=== PATIENT | male | born 1990 | race Caucasian/White ===

== ENCOUNTER 2020-11-25 09:05 | Inpatient (IN) | payer OTHER ==
[~2020-11-25] VITALS: Ht 175.3 cm; Wt 77.1 kg
[2020-11-25] MEDS ORDERED: IV NS 0.9% 1,000 ML BAG IV ONE ×2 (09:30→11:00)
[2020-11-25 09:52] LABS: BASOPHILS % (AUTO) 0.1 % (0.0-2.0); HEMATOCRIT 52 % (39-51); HEMOGLOBIN 17.5 g/dL (13.5-17.5); LYMPHOCYTES # (AUTO) 0.9 /CMM (0.8-4.8); LYMPHOCYTES % (AUTO) 5.5 % (20.0-44.0); MEAN CORPUSCULAR HGB CONC 33 g/dl (31.0-36.0); MEAN CORPUSCULAR VOLUME 94 fL (80-96); MONOCYTES # (AUTO) 1.6 /CMM (0.1-1.30); MONOCYTES % (AUTO) 10.2 % (2.0-12.0); NEUTROPHILS # (AUTO) 13.3 /CMM (1.8-8.9); NEUTROPHILS % (AUTO) 84.2 % (43.0-81.0); PLATELET COUNT (AUTO) 267 /CMM (150-450); RED BLOOD CELL COUNT(AUTO) 5.56 MIL/uL (4.5-6.0); WHITE BLOOD COUNT (AUTO) 15.7 K/uL (4.3-11.0)
[2020-11-25 10:17] LABS: CALCIUM, SERUM 9.5 mg/dL (8.5-10.1); CARBON DIOXIDE 31 mmol/L (21-32); CHLORIDE 101 mmol/L (98-107); GLUCOSE 120 mg/dL (74-106); POTASSIUM 5.1 mmol/L (3.5-5.1); SODIUM SERUM 140 mmol/L (136-145); UREA NITROGEN, BLOOD 23 mg/dL (7-18)
[2020-11-25 10:25] LABS: ALANINE AMINOTRANSFERASE 491 U/L (12-78); ALCOHOL, BLOOD < 3 mg/dL (0-0); ALKALINE PHOSPHATASE 90 U/L (46-116); ASPARTATE AMINOTRANSFERASE 1544 U/L (15-37); BILIRUBIN,DIRECT 0.1 mg/dL (0.0-0.2); BILIRUBIN,TOTAL 0.4 mg/dL (0.2-1.0); TOTAL PROTEIN, SERUM 7.9 g/dL (6.4-8.2)
[2020-11-25 10:29] LABS: THYROID STIMULATING HORMONE 1.202 uIU/mL (0.358-3.74)
[2020-11-25] MEDS ORDERED: IV NS 0.9% 250 ML IV ONE (10:34)
[2020-11-25] MEDS ORDERED: CT SWABBABLE VALVE TRANS SET 1 EA INFUS.SET MC ONE (10:34)
[2020-11-25] MEDS ORDERED: IOHEXOL-300 100 ML VIAL IV ONE (10:34)
[2020-11-25] MEDS ORDERED: ONDANSETRON HCL/PF 4 MG/2 ML VIAL ONE (10:54)
[2020-11-25] MEDS ORDERED: ONDANSETRON HCL/PF - ER 4 MG/2 ML VIAL IV ONE (11:00)
[2020-11-25 11:20] LABS: BILIRUBIN,URINE MODERATE (NEGATIVE); COLOR,URINE AMBER (YELLOW); LEUKOCYTE ESTERASE ,URINE NEGATIVE (NEGATIVE); NITRITE, URINE POSITIVE (NEGATIVE); PH,URINE 6.5 (5.0-8.0); PROTEIN,URINE 100 mg/dl (NEGATIVE); UGLUCOSE NEGATIVE (NEGATIVE); UROBILINOGEN,URINE 0.2 EU/dL (0.2)
[2020-11-25 11:30] LABS: BACTERIA,URINE Few /HPF (None Seen); SQUAMOUS EPITHELIAL CELL,UR Rare /HPF (None Seen)
[2020-11-25 11:31] LABS: HYALINE CASTS, URINE Few /LPF (None Seen); URINE AMORPHOUS URATE Few /HPF (None Seen)
[2020-11-25 11:32] LABS: COARSE GRANULAR CASTS,URINE Few /LPF (None Seen)
[2020-11-25] MEDS ORDERED: LORAZEPAM INJ 2 MG/ML VIAL ONE (16:27)
[2020-11-25] MEDS ORDERED: LORAZEPAM INJ 2 MG/ML VIAL IV ONE (17:00)
[2020-11-25] MEDS ORDERED: HYDROCODONE/APAP 5/325MG TABLET PO PRN (17:30)
[2020-11-25] MEDS ORDERED: MAG HYDROX/AL HYDROX/SIMETH 30 ML UDC PO PRN (17:30)
[2020-11-25] MEDS ORDERED: ONDANSETRON HCL/PF 4 MG/2 ML VIAL IVP PRN (17:30)
[2020-11-25] MEDS ORDERED: Z GUARD REMEDY 2 OZ OINT TP PRN (17:30)
[2020-11-25] MEDS ORDERED: ACETAMINOPHEN 325 MG TABLET PO PRN (17:30)
[2020-11-25] MEDS ORDERED: MAGNESIUM HYDROXIDE 30 ML UDC PO PRN (17:30)
[2020-11-25] MEDS ORDERED: GADOTERATE MEGLUMINE 10 MMOL/20 ML VIAL IV ONE (18:57)
[2020-11-25 20:00] VITALS: BP 116/70
[2020-11-25] MEDS ORDERED: ENOXAPARIN SODIUM 40 MG/0.4 ML DISP.SYRIN SQ SCH (21:00)
[2020-11-25] MEDS ORDERED: ZOLPIDEM TARTRATE 5 MG TABLET PO PRN (22:00)
[2020-11-26 06:54] LABS: BASOPHILS % (AUTO) 0.2 % (0.0-2.0); EOSINOPHILS % (AUTO) 0.2 % (0.0-6.0); HEMATOCRIT 48 % (39-51); HEMOGLOBIN 16.1 g/dL (13.5-17.5); LYMPHOCYTES # (AUTO) 1.4 /CMM (0.8-4.8); LYMPHOCYTES % (AUTO) 11.7 % (20.0-44.0); MEAN CORPUSCULAR HGB CONC 34 g/dl (31.0-36.0); MEAN CORPUSCULAR VOLUME 93 fL (80-96); MONOCYTES # (AUTO) 1.4 /CMM (0.1-1.30); MONOCYTES % (AUTO) 12.1 % (2.0-12.0); NEUTROPHILS # (AUTO) 8.8 /CMM (1.8-8.9); NEUTROPHILS % (AUTO) 75.8 % (43.0-81.0); PLATELET COUNT (AUTO) 241 /CMM (150-450); RED BLOOD CELL COUNT(AUTO) 5.14 MIL/uL (4.5-6.0); WHITE BLOOD COUNT (AUTO) 11.5 K/uL (4.3-11.0)
[2020-11-26 07:13] LABS: CALCIUM, SERUM 8.9 mg/dL (8.5-10.1); CREATININE 0.8 mg/dL (0.6-1.3); MAGNESIUM 2.7 mg/dL (1.8-2.4); PHOSPHORUS 2.8 mg/dL (2.5-4.9); POTASSIUM 4.2 mmol/L (3.5-5.1)
[2020-11-26 07:23] LABS: THYROID STIMULATING HORMONE 0.414 uIU/mL (0.358-3.74)
[2020-11-26 08:00] VITALS: BP 127/65
[2020-11-26 16:00] VITALS: BP 125/69
[2020-11-26 18:40] LABS: CSF GLUCOSE 72 mg/dL (40-70)
[2020-11-26 20:00] VITALS: BP 121/66
[2020-11-27 16:00] LABS: CSF PROTEIN 16.5 mg/dL (15-45)
== END 2020-11-26 21:05 | disposition short-term general hospital (02) | DRG 95 ==
LOC: ER 09:08 → TRANSITION 14:00 → MEDSG2 17:20
PROC: 009U3ZX Drainage of Spinal Canal, Percutaneous Approach, Diagnostic (ICD-10-PCS; principal; 2020-11-26)
PROC: B01BYZZ Fluoroscopy of Spinal Cord using Other Contrast (ICD-10-PCS; 2020-11-26)
DX: G61.0 Guillain-Barre syndrome (principal); E87.2 Acidosis; Z20.822 Contact with and (suspected) exposure to COVID-19; Z59.0 Homelessness; D72.829 Elevated white blood cell count, unspecified; Z72.0 Tobacco use; F19.10 Other psychoactive substance abuse, uncomplicated
CPT/HCPCS: 36415; 62270; 70450-TC; 71045-TC; 72132-TC; 72157-TC; 72158-TC; 80048-TC; 80061-TC; 80074; 80076-TC; 81001; 82962-TC; 83735-TC; 84100-TC; 84443-TC; 85025-TC; 85610-TC; 85730-TC; 86592; 87081-TC; 87086-TC; 87899; 89051-TC; A9575; G0378; G0480; J1650; J2060; J2405; J7030; J7050; Q9967; U0003

== ENCOUNTER 2021-02-12 17:41 | Emergency (ER) | payer OTHER ==
[~2021-02-12] VITALS: Ht 175.3 cm; Wt 78.0 kg
--- NOTE | 2021-02-12 18:04 | NUR ---
BIB RA 881,C/O LOWER BACK ABSCESS AND CHILLS. RATES PAIN 8/10. IN ROOM AIR AND DENIES SOB. RESPIRATION REGULAR AND UNLABORED. ATTACHED ON A MONITOR. WILL CONTINUE TO MONITOR THE PATIENT.
[2021-02-12] MEDS ORDERED: CLINDAMYCIN 900 MG in IV D5W 50 ML IV ONE (18:30)
[2021-02-12] MEDS ORDERED: CLINDAMYCIN 900 MG/6 ML VIAL ONE (18:33)
[2021-02-12 18:49] LABS: BASOPHILS % (AUTO) 0.2 % (0.0-2.0); EOSINOPHILS % (AUTO) 0.7 % (0.0-6.0); HEMATOCRIT 32 % (39-51); LYMPHOCYTES # (AUTO) 1.6 /CMM (0.8-4.8); LYMPHOCYTES % (AUTO) 8.3 % (20.0-44.0); MEAN CORPUSCULAR HGB CONC 32 g/dl (31.0-36.0); MEAN CORPUSCULAR VOLUME 88 fL (80-96); MONOCYTES # (AUTO) 1.3 /CMM (0.1-1.30); MONOCYTES % (AUTO) 6.8 % (2.0-12.0); NEUTROPHILS # (AUTO) 16.4 /CMM (1.8-8.9); PLATELET COUNT (AUTO) 549 /CMM (150-450); RED BLOOD CELL COUNT(AUTO) 3.59 MIL/uL (4.5-6.0); WHITE BLOOD COUNT (AUTO) 19.5 K/uL (4.3-11.0)
[2021-02-12 18:55] LABS: CALCIUM, SERUM 8.9 mg/dL (8.5-10.1); CREATININE 0.8 mg/dL (0.6-1.3); POTASSIUM 4.4 mmol/L (3.5-5.1)
[2021-02-12 19:01] LABS: ALBUMIN 1.9 g/dL (3.4-5.0); BILIRUBIN,DIRECT 0.1 mg/dL (0.0-0.2); BILIRUBIN,TOTAL 0.3 mg/dL (0.2-1.0); TOTAL PROTEIN, SERUM 7.2 g/dL (6.4-8.2)
[2021-02-12] MEDS ORDERED: CT SWABBABLE VALVE TRANS SET 1 EA INFUS.SET MC ONE (19:02)
[2021-02-12] MEDS ORDERED: IOHEXOL-300 100 ML VIAL IV ONE (19:02)
[2021-02-12] MEDS ORDERED: IV NS 0.9% 250 ML IV ONE (19:03)
--- NOTE | 2021-02-12 19:06 | NUR ---
blood culture already collected upon iv insertion.
--- NOTE | 2021-02-12 19:14 | NUR ---
MOVE SHEET SUBMITTED AND CALLED FOR MS BED.
--- NOTE | 2021-02-12 19:16 | NUR ---
[facility] CALLED INVESTMENT ADVISOR PAGED. JORDIN
--- NOTE | 2021-02-12 19:44 | NUR ---
COVID SWAB DONE AND SENT TO LAB
[2021-02-12] MEDS ORDERED: IV NS 0.9% 1,000 ML BAG IV ONE (20:00)
--- NOTE | 2021-02-12 20:24 | NUR ---
LAB CALLED REGARDING NEGATIVE COVID RESULT.
[2021-02-12] MEDS ORDERED: PIPERACILLIN /TAZOBACTAM 3.375 G in IV D5W 50 ML IV ONE (20:30)
[2021-02-12] MEDS ORDERED: PIPERACILLIN /TAZOBACTAM 3.375 G VIAL IV ONE (20:32)
--- NOTE | 2021-02-12 20:41 | NUR ---
M/S 325-2
--- NOTE | 2021-02-12 21:02 | NUR ---
CALLED [facility], PAGED JORDIN
--- NOTE | 2021-02-12 21:30 | NUR ---
DR. GARCÍA SPEAKING WITH DR. GARCIA
--- NOTE | 2021-02-12 21:36 | NUR ---
SPOKE WITH LAUREN FROM [facility] FOR HIGHER LEVEL OF CARE TRANSFER, NO BEDS AVAILABLE AT THIS TIME
--- NOTE | 2021-02-12 21:38 | NUR ---
CALLED [facility], CLOSED TO ED SAT UNTIL MORNING PER JANEEN MENDOZA
--- NOTE | 2021-02-12 21:40 | NUR ---
SPOKE WITH CAROLYN FROM [facility]. WILL FAX ([phone]) CLINICAL INFORMATION PER REQUEST AT THIS TIME
--- NOTE | 2021-02-12 21:45 | NUR ---
CALLED [facility], NO SPECIALIST ON PANEL PER REJI MORTON
--- NOTE | 2021-02-12 21:48 | NUR ---
CALLED [facility], PER ELOISA MENDOZA AT [facility]
--- NOTE | 2021-02-12 21:53 | NUR ---
SPOKE WITH [facility] CONSTRUCTION EQUIPMENT OPERATOR DAVID ([phone]) AND INFORMED NEED TO TRANSFER PATIENT FOR HIGHER LEVEL OF CARE
--- NOTE | 2021-02-12 22:08 | NUR ---
CALLED [facility] TRANSFER [facility], GIVEN GENERAL SURGERY STRATEGIC PLANNER Moy STEIN PAGING SERVICE, PAGED FOR TRANSFER REQUEST
--- NOTE | 2021-02-12 22:19 | NUR ---
RECEIVED CALL FROM DR MARIE, GENERAL SURGERY MD, SPEAKING WITH DR GARCÍA
--- NOTE | 2021-02-12 22:29 | NUR ---
CALLED [facility] - SPOKE TO TRI, FAXED FACESHEET AND CLINICALS TO [phone]
--- NOTE | 2021-02-12 22:48 | NUR ---
RECIEVED CALL FROM [facility] CASE MANAGEMENT - YASEMIN, STATES WILL INITIATE TRANSFER REQUEST FOR [facility]
--- NOTE | 2021-02-12 22:49 | NUR ---
FAXED FACESHEET AND CLINICALS TO YASEMIN KIMBLE SKIP OPERATOR
--- NOTE | 2021-02-12 22:51 | NUR ---
CHERELLE ONOFRE TALKING TO DR VILLAREAL FROM [facility]
--- NOTE | 2021-02-13 00:59 | NUR ---
MACY FROM [facility] STEPH[facility]IA REQUESTING A LETTER OF AGREEMENT AND AUTHORIZATION FROM PATIENTS INSURANCE. WILL CALL [facility] REAL ESTATE ACQUISITION ANALYST TO NOTIFY OF [facility] REQUEST.
--- NOTE | 2021-02-13 01:04 | NUR ---
[facility] PSYCHIATRIC SECRETARY PAGED. AWAITING CALL BACK.
--- NOTE | 2021-02-13 01:24 | NUR ---
GEMINI [facility] PHONE # FAX # PLEASE FAX LETTER OF AGREEMENT AND AUTHORIZATION ONCE RECEIVED.
--- NOTE | 2021-02-13 03:14 | NUR ---
[facility] LOCKSTITCH COAT JOINER PAGED. AWAITING CALL BACK.
--- NOTE | 2021-02-13 03:14 | NUR ---
jeffrey from [facility] called asking if pt found placement.Infromed her that pt still needs placement, will call back with information
--- NOTE | 2021-02-13 03:31 | NUR ---
SPOKE WITH JOSE DANIEL FROM [facility]. PER JOSE DANIEL, NO BEDS AVAILABLE AT THIS TIME. CLINICAL INFORMATION WILL BE REVIEWED BY [facility] DIETIST IN THE MORNING
--- NOTE | 2021-02-13 04:15 | NUR ---
SPOKE WITH [facility] RECREATION SUPERVISOR SUSHILA AND INFORMED OF POSSIBLE ACCEPTACE AT [facility] PENDING AUTHORIZATION. PROVIDED INFORMATION TO [facility] TRANSFER [facility]ENTER. PER SUSHILA, WILL FOLLOW UP AND CALL BACK
--- NOTE | 2021-02-13 05:47 | NUR ---
Per Verna at [facility], this is an EMTALA transfer and Yohannes would not need any verification from [facility], if accepted
--- NOTE | 2021-02-13 07:05 | NUR ---
gave report to REJI Sim for leyla
[2021-02-13] MEDS: CLINDAMYCIN IV RTU IN D5W 900 MG/50 ML PIGGYBACK IV SCH ×2 (08:43→16:30)
--- NOTE | 2021-02-13 09:02 | NUR ---
urine collected and sent to the lab
[2021-02-13 09:53] LABS: BILIRUBIN,URINE Negative (NEGATIVE); COLOR,URINE YELLOW (YELLOW); LEUKOCYTE ESTERASE ,URINE Moderate (NEGATIVE); NITRITE, URINE Negative (NEGATIVE); PH,URINE 5.5 (5.0-8.0); PROTEIN,URINE 100 mg/dl (NEGATIVE); UGLUCOSE Negative (NEGATIVE)
[2021-02-13 10:03] LABS: BACTERIA,URINE Few /HPF (None Seen); SQUAMOUS EPITHELIAL CELL,UR Few /HPF (None Seen)
--- NOTE | 2021-02-13 10:14 | NUR ---
SPOKED TO [facility] STILL NO BED AVAILABLE.
--- NOTE | 2021-02-13 10:57 | NUR ---
SPOKE TO RONALD FROM [facility]. THEY ARE UNABLE TO ACCOMODATE PATIENT DUE TO NOT HAVING [facility] AND SPECIALTY ON PANNEL. RECOMMEND FOR US TO CONTACT [facility].
--- NOTE | 2021-02-13 11:00 | NUR ---
CALLED [facility] TRANSFER [facility] FOR UPDATE ON ACCEPTANCE INFO. NO ANSWER. LEFT MESSAGE.
--- NOTE | 2021-02-13 11:16 | NUR ---
SPOKE TO MAYTE FROM [facility] TRANSFER [facility]. AT THE MOMENT STILL WAITING ON AN ACCEPTING SURGEON BUT NO OTHER UPDATES AT THE MOMENT. WILL UPDATE US WHEN THEY HAVE INFO.
[2021-02-13] MEDS ORDERED: PIPERACILLIN /TAZOBACTAM 3.375 G in IV D5W 50 ML IV SCH (12:00)
--- NOTE | 2021-02-13 12:29 | NUR ---
PT RESTING IN BED, SLEEPING EASILY AROUSABLE. STABLE VITALS. WILL CONTINUE TO MONITOR.
--- NOTE | 2021-02-13 13:09 | NUR ---
CALLED [email or web address] TRANSFER CENTER. STRAIGHT TO VOICEMAIL. LEFT A MESSAGE.
--- NOTE | 2021-02-13 13:33 | NUR ---
CALLED [facility] TRANSFER [facility]ENTER FOR FOLLOW UP ON ACCEPTANCE. SPOKE WITH VEDA AND AT THE MOMENT STILL NO UPDATE. PER VEDA CM STILL WAITING ON FINANCIALS AND INSURANCE FOR ACCEPTANCE.
--- NOTE | 2021-02-13 13:57 | NUR ---
PT SLEEPING, EASILY AROUSABLE. ON MONITOR W. STABLE VITALS. WILL CONTINUE TO MONITOR.
--- NOTE | 2021-02-13 14:27 | NUR ---
SPOKE TO IVETTE GARCIA FROM [facility]. [facility] DOCTOR WILL BE CALLING TO SPEAK WITH OUR DOCTOR TO PRESENT THE CASE.
--- NOTE | 2021-02-13 16:10 | NUR ---
SPOKE TO IVETTE KAUR, SPOKE TO SUSHILA AT [facility] AND WILL LOOK AT OTHER HOSPITAL W. COLORECTAL SURGERY CAPABILITY.
--- NOTE | 2021-02-13 17:39 | NUR ---
Received a call from Devan from [facility] to give auth number for [facility], informed Devan auth will need to be given to Jamaal at [phone] extn [phone] and also requested auth # verbally. Devan then conference call Jamaal from financial department at [facility] and spoke to Jamaal, per Jamaal no auth is required because he was just informed that patient is an IMTALA transfer not an ER to ER transfer, then call was ended. Called Jamaal at [phone] xtn [phone] and verified again that no auth is required and Jamaal confirmed. Call was then transferred to [facility] transfer center and spoke to Tahmina. Per Tahmina, they have no bed available and at capacity. Called ER and informed Bakari.
--- NOTE | 2021-02-13 18:10 | NUR ---
CALLED [facility] TO FOLLOW UP ON CASE. SPOKE TO ROSAS AT [facility] TRANSFER AND THE PATIENT WAS ALREADY ACCEPTED UNDER THE CARE OF DR. SIMON (SURGEON). NO ONE NOTIFIED ER STAFF OR CM IVETTE. ACCORDING TO ROSAS PATIENT CAN BE TRANSFERED ONCE WE HAVE THE AUTH NUMBER AND CALL TRANSFER CENTER BACK WITH AUTH NUMBER. WE CAN CALL FOR TO GIVE VERBAL AUTH TO ADMITTING AT [facility] : [phone] OR FAX AUTH TO [phone].
--- NOTE | 2021-02-13 18:30 | NUR ---
CALLED [facility] MANAGE AND SPOKEK TO GEREMIAS TO REQUEST TRANSFER AUTHORIZATION. WILL CALL BACK WITH ELECTRONIC DEVICE REPAIRER TO FOLLOW UP ON CASE AND PRESENT ACCEPTING INFORMATION FOR [facility].
--- NOTE | 2021-02-13 18:33 | NUR ---
[facility] REP CALLED BACK INFORMING US THAT THEY ARE WAITING FOR [facility] TO PROVIDE AUTHORIZATION FOR PATIENT
--- NOTE | 2021-02-13 19:00 | NUR ---
SUNIL [facility] FOR AUTH. PLEASE CALL THIS NUMBER TO GIVE AUTH. [phone].
--- NOTE | 2021-02-13 19:05 | NUR ---
pt sleeping, easily arousable.
--- NOTE | 2021-02-13 21:20 | NUR ---
PER [facility] ADMITTING DEPT, MULTIPLE CALLS MADE TO [facility] REGARDING AUTHORIZATION. UNABLE TO SPEAK WITH FINISH PAINTER. WILL CONTINUE TO ATTEMPT CONTACTING [facility] TEACHER [employer] ([phone])
--- NOTE | 2021-02-13 21:44 | NUR ---
ON HOLD WITH [facility] FOR OVER 30 MINUTES. UNABLE TO SPEAK WITH ESCALATOR OPERATOR. LEFT VOICEMAIL, WILL FOLLOW UP
--- NOTE | 2021-02-13 22:00 | NUR ---
Pt sleeping vss, easily arousable
--- NOTE | 2021-02-13 22:16 | NUR ---
SPOKE WITH SUNIL FROM [facility] TO GIVE UPDATE CLINICAL INFORMATION. PER SUNIL, SHE WILL FOLLOW UP WITH [facility]ANIA FOR AUTHORIZATION AND CALL BACK
--- NOTE | 2021-02-13 23:09 | NUR ---
SPOKE WITH [facility] PART[facility] PROFESSIONAL SUNIL. NO BED AVAILABLE FOR TRANSFER TONIGHT, WILL FOLLOW UP IN THE MORNING
[2021-02-14] MEDS ORDERED: CLINDAMYCIN 900 MG/6 ML VIAL ONE ×2 (00:34→08:14)
[2021-02-14] MEDS: CLINDAMYCIN IV RTU IN D5W 900 MG/50 ML PIGGYBACK IV SCH (00:41)
[2021-02-14 07:54] LABS: BASOPHILS % (AUTO) 0.2 % (0.0-2.0); EOSINOPHILS % (AUTO) 0.8 % (0.0-6.0); HEMATOCRIT 28 % (39-51); LYMPHOCYTES # (AUTO) 1.3 /CMM (0.8-4.8); MEAN CORPUSCULAR HGB CONC 32 g/dl (31.0-36.0); MEAN CORPUSCULAR VOLUME 87 fL (80-96); MONOCYTES # (AUTO) 1.5 /CMM (0.1-1.30); MONOCYTES % (AUTO) 7.9 % (2.0-12.0); NEUTROPHILS # (AUTO) 15.5 /CMM (1.8-8.9); NEUTROPHILS % (AUTO) 84.1 % (43.0-81.0); PLATELET COUNT (AUTO) 480 /CMM (150-450); RED BLOOD CELL COUNT(AUTO) 3.19 MIL/uL (4.5-6.0); WHITE BLOOD COUNT (AUTO) 18.4 K/uL (4.3-11.0)
[2021-02-14 08:07] LABS: CALCIUM, SERUM 8.4 mg/dL (8.5-10.1); CREATININE 0.6 mg/dL (0.6-1.3); POTASSIUM 3.6 mmol/L (3.5-5.1)
--- NOTE | 2021-02-14 08:15 | NUR ---
CALLED [phone] FOR AUTH WAITED 30 MINS NO ANSWER.
[2021-02-14] MEDS: CLINDAMYCIN 900 MG in IV D5W 50 ML IV SCH ×2 (08:37→16:41)
--- NOTE | 2021-02-14 10:12 | NUR ---
KELLI CARGO SERVICE SUPERVISOR CALLED ASKING TO FOLLOW UP W/ [facility], STATES PT WILL BE ACCEPTED VIA EMTALA TRANSFER.
--- NOTE | 2021-02-14 10:13 | NUR ---
CALLED [facility] TRANSFER LINE [phone] JEAN-CLAUDE ED IS AT [facility] BUT WILL PRESENT TO TEAM
--- NOTE | 2021-02-14 11:45 | NUR ---
DR CHATMAN FROM [facility] ON PHONE TALKING TO DR PAYTON, UNABLE TO TAKE PATIENT.
--- NOTE | 2021-02-14 13:06 | NUR ---
JEAN-CLAUDE FROM [facility] TRANSFER CENTER INFORMING US THAT REQUEST BEING DENIED DUE TO ED SATURATION AND DIVERSIONS. DR PAYTON AWARE.
--- NOTE | 2021-02-14 16:46 | NUR ---
SPOKE TO CASE NAT CALLE, STATES THEY ARE STILL WAITING FOR [facility] CENTRAL OFFICE EQUIPMENT ENGINEER FOR HOSPITAL THAT WILL TAKE THE PATIENT.
--- NOTE | 2021-02-14 17:24 | NUR ---
DR. GARAY WOULD LIKE TO CM OF [facility]. OUR CM IS ON HOLD WITH [facility] CURRENTLY.
--- NOTE | 2021-02-14 19:20 | NUR ---
REPORT GIVEN TO REJI MA FOR TAMIR
--- NOTE | 2021-02-14 19:38 | NUR ---
SPOKE WITH VP PACKAGING SUSHILA FROM [facility]. PER SUSHILA, D/T MULTIPLE UNSUCCESSFUL ATTEMPTS TO FIND PLACEMENT FOR PATIENT, RECOMMENDED TO D/C HIGHER LEVEL OF CARE TRANSFER AND ARRANGE PLACEMENT TO [facility] FOR IV ANTIBIOTICS. WILL FAX UPDATE CLINICAL INFORMATION AT THIS TIME (FAX: [phone])
[2021-02-15] MEDS: CLINDAMYCIN 900 MG in IV D5W 50 ML IV SCH ×3 (00:30→16:39)
--- NOTE | 2021-02-15 01:03 | NUR ---
PT AWAKE IN BED, REMAINS ON MONITOR.
--- NOTE | 2021-02-15 06:47 | NUR ---
PT ASLEEP ,VSS.
--- NOTE | 2021-02-15 10:30 | NUR ---
Called [facility] and spoke to Delphine ([facility] admitting representative) re: an update on patient's status, per Delphine to leave a message and an brick mason cm will call back, call was then transferred to a voicemail and left message. Awaiting for call back.
--- NOTE | 2021-02-15 10:43 | NUR ---
JARRETT FROM [facility] CALLED INFORMING THAT THEY ARE CLOSING THE CASE.
--- NOTE | 2021-02-15 16:23 | NUR ---
Received a call from Jorden from [facility] and stated that their medical receptionist medical assistant cancelled the case. When asked Jorden the reason for the cancellation, Jorden stated there wasn't any and Dr. Correa just cancelled it. Per Jorden, "Dr. Correa was only approving [facility] even if [facility] is saturated it is the only place he will approve and he will not approve [facility]." Emphasized to Jorden that patient's case was presented to several hospital as well, however, [facility] and they needed an auth from [facility] since they are not contracted with them. Reiterated to Jorden re: next step since Dr. correa cancelled the case and the patient has been in ER since 02/13, per Jorden he will reach out to Dr. Correa. Requested a peer to peer if it can be arrange with Dr. Rollins (Dr. Rollins informed of peer to peer) regarding next step or plan since Dr. Correa cancelled the case, per Jorden, he will email Dr. Correa and call back with a response.
--- NOTE | 2021-02-15 16:39 | NUR ---
Received a call from Jorden and stated Dr. Correa stated, "it's [employer] management handling now not [facility]." communicated with Ronal and Dr. Rollins.
--- NOTE | 2021-02-15 20:11 | NUR ---
PT RESTING COMFORTABLY IN BED. VITAL SIGNS STABLE. NO ACUTE DISTRESS NOTED AT THIS TIME
[2021-02-16] MEDS: CLINDAMYCIN 900 MG in IV D5W 50 ML IV SCH ×2 (00:43→09:04)
--- NOTE | 2021-02-16 09:31 | NUR ---
PATIENT RESTING IN BED. DENIES ANY DISTRESS.
--- NOTE | 2021-02-16 09:50 | NUR ---
SPOKE TO ALYSSA KAUR AT [facility]. INFORMING US ABOUT PENDING SNF PLACEMENT.
--- NOTE | 2021-02-16 12:33 | NUR ---
CASE MANAGEMENT CALLED. [facility] RM [facility].A # FOR REPORT [phone] ETA [phone]
--- NOTE | 2021-02-16 13:08 | NUR ---
REPORT GIVEN TO NADIA MENDOZA AT [facility]. AWAITING TRANSPORT.
--- NOTE | 2021-02-16 13:10 | NUR ---
The patient is alert and oriented x4. In room air and denies SOB. Respiration regular and unlabored. The patient is in no apparent distress. Will continue to monitor the patient.
--- NOTE | 2021-02-16 14:24 | NUR ---
THE PATIENT GOT TRANSFERED TO SNF IN STABLE CONDITION.
[2021-02-16 14:26] VITALS: BP 123/63
== END 2021-02-16 14:27 ==
LOC: ER 17:49
DX: A41.9 Sepsis, unspecified organism (principal); K61.0 Anal abscess; L03.319 Cellulitis of trunk, unspecified; Z59.0 Homelessness; E86.0 Dehydration; L98.499 Non-pressure chronic ulcer of skin of other sites with unspecified severity; Z20.822 Contact with and (suspected) exposure to COVID-19; D64.9 Anemia, unspecified; M46.28 Osteomyelitis of vertebra, sacral and sacrococcygeal region; Z99.3 Dependence on wheelchair; G82.20 Paraplegia, unspecified; R00.0 Tachycardia, unspecified; Z88.1 Allergy status to other antibiotic agents; N48.89 Other specified disorders of penis; E88.09 Other disorders of plasma-protein metabolism, not elsewhere classified; Z75.2 Other waiting period for investigation and treatment
CPT/HCPCS: 36415 ×2; 74177; 76870; 80048; 80076; 80307; 83605; 85025; 85730; 87040 ×2; 87077; 87081; 87426; 96365; 96366 ×4; 96367; 96375; 99285; C9803; J2543 ×2; J3490 ×6; J7030; J7040; J7050; J7060 ×5; Q9967

== ENCOUNTER 2021-12-08 20:23 | Emergency (ER) | payer OTHER ==
[~2021-12-08] VITALS: Ht 170.2 cm; Wt 82.1 kg
--- NOTE | 2021-12-08 20:48 | NUR ---
Ozzie cruz in EDM - 12/08/21 at 2120 by ELIZABETH BIBSEJANE C/O MERYL FEET SWELLING, WANTING WOUND CHECK. PT A/OX4. TOLERATING R/A WELL WITH NO SOB. PT AMBULATORY WITH STEADY GAIT
--- NOTE | 2021-12-08 20:48 | NUR ---
BIBSELF C/O MERYL FEET SWELLING, WANTING WOUND CHECK. PT A/OX4. TOLERATING R/A WELL WITH NO SOB. PT PARALEGIC FROM WAIST DOWN.
--- NOTE | 2021-12-08 21:25 | NUR ---
AQUATIC LIFE LABORER AT PT'S BEDSIDE
--- NOTE | 2021-12-08 21:32 | NUR ---
INTERIOR ASSEMBLIES DEVELOPER PROVER AT PT'S BEDSIDE
[2021-12-08 21:41] LABS: BASOPHILS % (AUTO) 0.3 % (0.0-2.0); EOSINOPHILS % (AUTO) 2.2 % (0.0-6.0); HEMATOCRIT 43 % (39-51); HEMOGLOBIN 14.6 g/dL (13.5-17.5); LYMPHOCYTES # (AUTO) 1.3 K/uL (0.8-4.8); LYMPHOCYTES % (AUTO) 15.6 % (20.0-44.0); MEAN CORPUSCULAR HGB CONC 34 g/dl (31.0-36.0); MEAN CORPUSCULAR VOLUME 88 fL (80-96); MONOCYTES # (AUTO) 0.9 K/uL (0.1-1.30); NEUTROPHILS % (AUTO) 70.9 % (43.0-81.0); PLATELET COUNT (AUTO) 289 K/uL (150-450); RED BLOOD CELL COUNT(AUTO) 4.89 MIL/uL (4.5-6.0); WHITE BLOOD COUNT (AUTO) 8.5 K/uL (4.3-11.0)
[2021-12-08 21:55] LABS: BILIRUBIN,DIRECT 0.1 mg/dL (0.0-0.2); BILIRUBIN,TOTAL 0.5 mg/dL (0.2-1.0); CALCIUM, SERUM 9.2 mg/dL (8.5-10.1); POTASSIUM 3.5 mmol/L (3.5-5.1); TOTAL PROTEIN, SERUM 7.8 g/dL (6.4-8.2)
--- NOTE | 2021-12-08 22:01 | NUR ---
URINE COLLECTED AND SENT TO LAB
[2021-12-08 22:06] LABS: ALBUMIN 3.3 g/dL (3.4-5.0)
[2021-12-08 22:40] LABS: BILIRUBIN,URINE SMALL (NEGATIVE); COLOR,URINE YELLOW (YELLOW); LEUKOCYTE ESTERASE ,URINE NEGATIVE (NEGATIVE); NITRITE, URINE POSITIVE (NEGATIVE); PROTEIN,URINE TRACE mg/dl (NEGATIVE); UGLUCOSE NEGATIVE (NEGATIVE)
[2021-12-08] MEDS ORDERED: CIPR500T5 PO (22:50)
[2021-12-08] MEDS ORDERED: CIPROFLOXACIN HCL 500 MG TABLET PO ONE (23:00)
[2021-12-08] MEDS ORDERED: CIPROFLOXACIN HCL 500 MG TABLET ONE (23:30)
--- NOTE | 2021-12-08 23:51 | NUR ---
Patient discharged to home in stable condition. Written and verbal after care instructions given. Patient verbalizes understanding of instruction. PT W/C BOUND
[2021-12-09 00:58] VITALS: BP 149/89
[2021-12-09 09:26] LABS: BACTERIA,URINE Few /HPF (None Seen)
[2021-12-09 09:28] LABS: MUCUS,URINE Moderate /LPF (None Seen); SQUAMOUS EPITHELIAL CELL,UR None Seen /HPF (None Seen)
== END 2021-12-08 21:39 | disposition home or self-care (01) ==
LOC: ER 20:26
DX: R60.0 Localized edema (principal); N39.0 Urinary tract infection, site not specified; F17.200 Nicotine dependence, unspecified, uncomplicated; Z88.1 Allergy status to other antibiotic agents; Z60.2 Problems related to living alone; Z79.899 Other long term (current) drug therapy
CPT/HCPCS: 36415; 71045-TC; 80048-TC; 80076-TC; 81001; 83880; 85025-TC; 87086-TC; 87186-TC

== ENCOUNTER 2021-12-11 00:16 | Emergency (ER) | payer OTHER ==
[~2021-12-11] VITALS: Ht 177.8 cm; Wt 86.2 kg
[~2021-12-11 00:16] MED LIST: CIPR500T5 PO
--- NOTE | 2021-12-11 00:48 | NUR ---
BIBS FOR C/O R FISCHER AND L THIGH PAIN S/P FALL. PATIENT ALERT AND ORIENTED X3. PLACED IN BED 11 WITH NON LABORED BREATHING.
[2021-12-11] MEDS ORDERED: IBUPROFEN 400 MG TABLET PO ONE (01:00)
[2021-12-11] MEDS ORDERED: IBUPROFEN 400 MG TABLET ONE (01:01)
--- NOTE | 2021-12-11 01:35 | NUR ---
Patient discharged to home in stable condition. Written and verbal after care instructions given. Patient verbalizes understanding of instruction.
[2021-12-11 02:40] VITALS: BP 122/69
== END 2021-12-11 02:40 | disposition home or self-care (01) ==
LOC: ER 00:19
DX: S80.12XA Contusion of left lower leg, initial encounter (principal); S80.11XA Contusion of right lower leg, initial encounter; F17.200 Nicotine dependence, unspecified, uncomplicated; Z79.899 Other long term (current) drug therapy; Z59.00 Homelessness unspecified; W05.0XXA Fall from non-moving wheelchair, initial encounter; Y93.89 Activity, other specified; Y92.89 Other specified places as the place of occurrence of the external cause; Y99.8 Other external cause status
CPT/HCPCS: 73552; 73590-TC